=== PATIENT | female | born 1975 | race Caucasian/White ===

== ENCOUNTER 2017-01-01 04:30 | Emergency (ER) | payer OTHER ==
[~2017-01-01] VITALS: Ht 175.3 cm; Wt 138.3 kg
[~2017-01-01 04:30] MED LIST: GLUCOPHAGE500 MG PO; SYNTHROID0.15 MG PO
[2017-01-01 04:32] VITALS: BP 138/75
--- NOTE | 2017-01-01 04:45 | NUR ---
PATIENT AMBULATED TO ER BED 05
--- NOTE | 2017-01-01 04:50 | NUR ---
41Y F BIB SELF C/O COUGHING, N/V/D, AND SOB X 4 DAYS . PT SKIN IS PINK/WARM/DRY; AAOX4 WITH EVEN AND STEADY GAIT; LUNGS CLEAR BL; HR EVEN AND REGULAR; PT DENIES ANY FEVER, CP AT THIS TIME; PATIENT STATES PAIN OF 6/10 AT THIS TIME; VSS; PATIENT POSITIONED FOR COMFORT; HOB ELEVATED; BEDRAILS UP X2; BED DOWN. ER MD MADE AWARE OF PT STATUS.
--- NOTE | 2017-01-01 04:53 | NUR ---
Patient being evaluated by physician at bedside.
[2017-01-01] MEDS ORDERED: ALBUTEROL SULFATE/IPRATROPIU 3 ML SOL IH ONE (05:00)
[2017-01-01] MEDS ORDERED: ACETAMIN/CODEINE 120/12MG-5ML 5 ML UDC PO ONE (05:00)
--- NOTE | 2017-01-01 05:27 | NUR ---
RT AT BEDSIDE
[2017-01-01 06:32] VITALS: BP 132/75
--- NOTE | 2017-01-01 06:33 | NUR ---
Patient discharged with v/s stable. Written and verbal after care instructions given and explained. Patient alert, oriented and verbalized understanding of instructions. Ambulatory with steady gait. All questions addressed prior to discharge. ID band removed. Patient advised to follow up with PMD. Rx of ALBUTEROL INHALER. ZPACK, AND GUAIATUSSIN AC given. Patient educated on indication of medication including possible reaction and side effects. Opportunity to ask questions provided and answered.
== END 2017-01-01 06:32 | disposition home or self-care (01) ==
LOC: MED 04:30
DX: J20.9 Acute bronchitis, unspecified (principal); E11.9 Type 2 diabetes mellitus without complications; E03.9 Hypothyroidism, unspecified
CPT/HCPCS: 71010; 94640; 99283; J7620; Q0092

== ENCOUNTER 2017-01-12 23:55 | Emergency (ER) | payer OTHER ==
[~2017-01-12] VITALS: Ht 175.3 cm; Wt 136.1 kg
[2017-01-13 00:01] VITALS: BP 156/84
--- NOTE | 2017-01-13 01:15 | NUR ---
PT TAKEN BED 3
--- NOTE | 2017-01-13 01:30 | NUR ---
41Y/F PATIENT PRESENTS TO ED WITH C/O OF WORSENING SORE THROAT X3DAYS. PATIENT STATES HER EYES BURN AND HER EARS ARE PLUGGED, ALSO STATES CAME HERE LAST WEEK FOR BRONCHITIS. HX: BORDERLINE DM--TAKING METFORMIN. DENIES N/V/D; SKIN IS PINK/WARM/DRY; AAOX4 WITH EVEN AND STEADY GAIT; LUNGS CLEAR BL; HR EVEN AND REGULAR; PT DENIES ANY FEVER, CP, SOB, OR COUGH AT THIS TIME; PATIENT STATES PAIN OF 5/10 AT THIS TIME; VSS; PATIENT POSITIONED FOR COMFORT; HOB ELEVATED; BEDRAILS UP X2; BED DOWN. ER MD MADE AWARE OF PT STATUS.
--- NOTE | 2017-01-13 02:30 | NUR ---
Dr. Humphries evaluating patient at bedside.
[2017-01-13] MEDS ORDERED: KETOROLAC 60 MG/2 ML VIAL IM ONE (02:35)
[2017-01-13 03:05] VITALS: BP 145/80
--- NOTE | 2017-01-13 03:06 | NUR ---
Patient discharged with v/s stable. Written and verbal after care instructions given and explained. Patient alert, oriented and verbalized understanding of instructions. Ambulatory with steady gait. All questions addressed prior to discharge. ID band removed. Patient advised to follow up with PMD. Rx of PREDNISOLONE 20 MG, NORCO 5/325 MG given. Patient educated on indication of medication including possible reaction and side effects. Opportunity to ask questions provided and answered.
== END 2017-01-13 03:06 | disposition home or self-care (01) ==
LOC: MED 23:55
DX: J02.9 Acute pharyngitis, unspecified (principal); E11.9 Type 2 diabetes mellitus without complications; E03.9 Hypothyroidism, unspecified
CPT/HCPCS: 96372; 99283; J1885

== ENCOUNTER 2018-06-17 16:42 | Emergency (ER) | payer OTHER ==
[~2018-06-17] VITALS: Ht 175.3 cm; Wt 116.1 kg
[~2018-06-17 16:42] MED LIST changes: -GLUCOPHAGE500 MG PO; +LEVO0.155 PO; +METF500T PO; -SYNTHROID0.15 MG PO
[2018-06-17 16:48] VITALS: BP 115/67
--- NOTE | 2018-06-17 16:49 | NUR ---
Linda lazaro in [facility] - 06/17/18 at 1653 by [email or web address] Patient ambulated to bed 11. RN evaluating patient at bedside.
--- NOTE | 2018-06-17 16:52 | NUR ---
Patient ambulated to bed 8. RN evaluating patient at bedside.
--- NOTE | 2018-06-17 17:06 | NUR ---
Dr. Granados evaluating patient at bedside.
--- NOTE | 2018-06-17 17:19 | NUR ---
PATIENT PRESENTS TO ED WITH RIGHT SIDED BACK PAIN ; AMBULATORY WITH STEADY GAIT . PT STATES . DENIES N/V/D; SKIN IS PINK/WARM/DRY; AAOX4 WITH EVEN AND STEADY GAIT; LUNGS CLEAR BL; HR EVEN AND REGULAR; PT DENIES ANY FEVER, CP, SOB, OR COUGH AT THIS TIME; PATIENT STATES PAIN OF 10/10 AT THIS TIME; VSS; PATIENT POSITIONED FOR COMFORT; HOB ELEVATED; BEDRAILS UP X2; BED DOWN. ER MD MADE AWARE OF PT STATUS.
[2018-06-17] MEDS ORDERED: MORPHINE SULFATE 2 MG/ML SYR IM ONE (17:45)
[2018-06-17] MEDS ORDERED: KETOROLAC 60 MG/2 ML VIAL IM ONE (17:45)
[2018-06-17] MEDS ORDERED: diphenhydrAMINE 50 MG/ML VIAL IM ONE (17:45)
--- NOTE | 2018-06-17 18:05 | NUR ---
ENCOURAGED NOT TO MAKE SUDDEN MOVEMENTS IT MAY RE-EXACERBATE BACK SPASMS----DENIES INJURY/TRAUMA---AWOKE ONE DAY IN PAIN AND HAS PROGRESSIVELY WORSEN PER PT DENIES INCONTINENCE 0R SADDLE NUMBNESS---ABLE TO SELF REPOSITION IN [place]. MEDICATED WRITTEN , WILL CONTINUE TO OBSERVE FOR PAIN CONTROL
--- NOTE | 2018-06-17 18:37 | NUR ---
RESTING WITH OU CLOSED, LAYING ON RIGHT SIDE----NO GRIMACE NO MOAN NO CRY AT THIS TIME---WILL CONTINUE TO OBERVE FOR PAIN CONTROL
[2018-06-17 19:05] VITALS: BP 133/91
== END 2018-06-17 19:00 | disposition home or self-care (01) ==
LOC: MED 16:42
DX: M62.830 Muscle spasm of back (principal); E03.9 Hypothyroidism, unspecified
CPT/HCPCS: 96372; 99284; J1200; J1885; J2270

== ENCOUNTER 2019-08-08 23:11 | Emergency (ER) | payer OTHER ==
[~2019-08-08] VITALS: Ht 175.3 cm; Wt 114.8 kg
[2019-08-08 23:11] VITALS: BP 104/50
--- NOTE | 2019-08-08 23:12 | NUR ---
PT TAKEN TO BED 12
--- NOTE | 2019-08-08 23:24 | NUR ---
43 Y/O FEMALE PRESENTS TO ED, C/O LOWER BACK PAIN 09/05. PT HAS HX OF COMPRESSED DISCS. STARTED HAVING BACK SPASMS AT NOON. PT DENIES TAKING ANY MEDICATIONS FOR PAIN. PT DENIES ANY TINGLING SENSATION ON EXTREMITIES. PT AMBULATES WITH UNSTEADY GAIT. WHEELCHAIRED TO BED AT ED. PT VSS. ERMD AWARE. WILL CONTINUE TO MONITOR.
--- NOTE | 2019-08-09 00:04 | NUR ---
Dr. Wilson examining patient.
[2019-08-09] MEDS ORDERED: MORPHINE SULFATE 5 MG/ML VIAL IM ONE (00:10)
[2019-08-09 00:39] VITALS: BP 104/50
--- NOTE | 2019-08-09 00:39 | NUR ---
PT DISCHARGED WITH PAPERWORK. RX FLEXERIL, LIDODERM. EDUCATED PT REGARDING MEDICATIONS AND S/E. EDUCATED PT REGARDING D/C DIAGNOSIS AND INSTRUCTIONS. PT VERBALIZED UNDERSTANDING OF TEACHING. TOLD PT TO FOLLOW UP WITH PCP AND WHEN TO RETURN TO ED. PT VSS. ALL QUESTIONS ANSWERED.
== END 2019-08-09 00:39 | disposition home or self-care (01) ==
LOC: MED 23:11
DX: M54.42 Lumbago with sciatica, left side (principal); E11.9 Type 2 diabetes mellitus without complications; E03.9 Hypothyroidism, unspecified; Z79.84 Long term (current) use of oral hypoglycemic drugs; Z79.899 Other long term (current) drug therapy
CPT/HCPCS: 96372; 99283; J2270